=== PATIENT | male | born 1935 | race Caucasian/White ===

== ENCOUNTER 2016-08-25 06:00 | Day surgery (SDC) | payer OTHER, MEDICARE ==
[~2016-08-25] VITALS: Ht 177.8 cm; Wt 88.5 kg
[~2016-08-25 06:00] MED LIST: ASPIR 8181 MG PO; CARBIDOPA-LEVO1 EA10 PO; CITALOPRAM HBR20 MG PO; LEVOTHYROXINE25 MCG PO; LISINOPRIL2.5 MG PO; PREDNISONE20 MG PO; PRILOSEC20 MG PO
--- NOTE | 2016-08-25 08:22 | NUR ---
08/25/16 0822 Eran Enriquez PT SLEEPING AND PASSING AIR FROM HIS COLON.
--- NOTE | 2016-08-27 11:21 | OR ---
[facility] [address], [place] [address] Signed DATE OF SERVICE: 08/25/2016 UPPER AND LOWER ENDOSCOPY REPORT PREOPERATIVE DIAGNOSES: 1 .Advanced Parkinson disease. 2. Worsening esophageal dysphagia. 3. Gastroesophageal reflux disease. 4. Decreased cervical range of motion. 5. Personal history of colonic polyps. 6. Diverticulosis. 7. Internal anal skin tags. POSTOPERATIVE DIAGNOSES: 1. Diffuse gastritis. 2. 3 and 5 mm cecal polyps. 3. 3 x 7 mm proximal right colon polyp. 4. A 5-mm polyp proximal transverse colon (110 cm). 5. A 5-mm polyp distal transverse colon. 6. A 5-mm polyp distal splenic flexure. 7. Pandiverticulosis. 8. Internal anal skin tag. PROCEDURES: 1. Esophagogastroduodenoscopy with CLOtest and biopsies of the antrum. 2. Colonoscopy with hot biopsy. ESTIMATED BLOOD LOSS: None. INDICATIONS: Jsohua is a 80-year-old gentleman, who has been coming every 5 years for his followup colonoscopy. He has had adenomatous colonic polyps removed as far back as 2004. He said more recently, his bowel movements are fine. There is no family history of colon cancer or polyps. He is known to have pandiverticulosis as well as internal anal skin tags. In addition, he has advancing Parkinson disease. His esophageal dysphasia is becoming worse and his cervical range of motion is becoming less. He also suffers with some acid reflux. Because of his worsening esophageal dysphagia, particularly in the posterior oropharynx versus the proximal esophagus, he wanted to undergo an upper endoscopy as well. In the office, I gave him pamphlets on both subjects and we reviewed those together in detail. We also reviewed the risk including, but not limited to, gas bloating, crampy abdominal pain, bleeding, perforation requiring surgery, and missed diagnosis. We also discussed the Electronically Signed By: VINH OLIVAS MD 08/27/16 1121 PATIENT NAME: JOSHUA BARRETT OPERATIVE REPORT DATE OF : 39 PHYSICIAN: VINH OLIVAS MD REPORT #: [id number] REPORT IS CONFIDENTIAL AND NOT TO BE RELEASED WITHOUT AUTHORIZATION [facility] [address], [place] [address] Signed need for IV conscious sedation. Given his advanced Parkinson disease and hisdifficult airway and cervical range of motion, we asked that an anesthesia provider help us with increased monitoring of the airway as well as infusion of propofol. He had expressed understanding and wished to proceed. PROCEDURE NOTE: Joshua was taken into our endoscopy suite and placed in the supine semi-recumbent position. The posterior oropharynx was anesthetizedwith Hurricaine spray. He has a very limited extension of his neck. Consequently, the angle coming over his tongue and down in the esophagus is difficult, even with direct visualization with our gastroscope. He had been given IV sedation with the propofol. A bite block was utilized. It took vivian few minutes to get the scope past his tongue because of the Parkinson disease. Eventually, we passed the epiglottis and down into the esophagus and out into the duodenum itself. His duodenum and pyloric channel were unremarkable. The entire stomach showed some diffuse erythematous changes. We went ahead and took a biopsy of the antrum for CLOtest as well as pathologic review. Upon retroflexion of the scope, his flap valve mechanism is less than perfect, but it is not a true hiatal hernia. We saw no gastric or esophageal varices. The scope was then withdrawn up to the area ofthe GE junction which was compliant without stricture. He had minimal disruption to the Z-line. His distal, middle, and upper esophagus were completely unremarkable. After this, the gas was suctioned out and the gastroscope removed. Joshua tolerated his upperendoscopy quite well. Joshua was rotated into theleft lateral decubitus position. He was maintained on IV sedation with propofol per nurse sheriff sergeant. A digital rectal exam was performed and he does have a mildly enlarged prostate gland, but it is also indurated. It is a little more prominent on the left than on the right. After this, the adult colonoscope was introduced and advanced all the way around into the cecum under direct visualization of the camera. The above-mentioned polyps were removed with the help of a hot biopsy forceps. Of course, the most concerning polyp was in the proximal right colon as it stretched along the fold. We felt we cauterized that entire lesion. Overall, the prep was good. He also has pandiverticulosis. They are moderate in size, moderate in number, and scattered throughout the colon. Once in the rectum, the scope was then retroflexed and I could see a single internal anal skin tag. After this, the gas was suctioned out, the colonoscope removed. Joshua tolerated his procedures quite well. RECOMMENDATIONS: We will have Joshua back in the office in 7-14 days to review his results. I suspect much of his swallowing difficulties coming from his decreased range of motion of his neck and the angle that he has to swallow in the posteriororopharynx. Electronically Signed By: VINH OLIVAS MD 08/27/16 1121 PATIENT NAME: JOSHUA BARRETT OPERATIVE REPORT DATE OF : 39 PHYSICIAN: VINH OLIVAS MD REPORT #: [id number] REPORT IS CONFIDENTIAL AND NOT TO BE RELEASED WITHOUT AUTHORIZATION [facility] [address] [place] [address] [place] [address] Signed MD MURALI Mccloud/Breanna /[id number] cc: Dr. Santos Olivas MD Electronically Signed By: VINH OLIVAS MD 08/27/16 1121 PATIENT NAME: NENAJOSHUA WINIFRED OPERATIVE REPORT DATE OF : 39 PHYSICIAN: VINH OLIVAS MD REPORT #: [id number] REPORT IS CONFIDENTIAL AND NOT TO BE RELEASED WITHOUT AUTHORIZATION
== END 2016-08-25 09:29 | disposition home or self-care (01) ==
LOC: DS 06:00 → OPS 06:00 → DS 06:45 → OPS 06:45
PROVIDERS: Colon & Rectal Surgery
PROC: 0DB68ZX Excision of Stomach, Via Natural or Artificial Opening Endoscopic, Diagnostic (ICD-10-PCS; 2016-08-25)
PROC: 0DBH8ZX Excision of Cecum, Via Natural or Artificial Opening Endoscopic, Diagnostic (ICD-10-PCS; 2016-08-25)
PROC: 0DBL8ZX Excision of Transverse Colon, Via Natural or Artificial Opening Endoscopic, Diagnostic (ICD-10-PCS; principal; 2016-08-25 06:45)
PROC: 0DBF8ZX Excision of Right Large Intestine, Via Natural or Artificial Opening Endoscopic, Diagnostic (ICD-10-PCS; 2016-08-25 06:45)
DX: D12.3 Benign neoplasm of transverse colon (principal); D12.0 Benign neoplasm of cecum; K63.5 Polyp of colon; K29.50 Unspecified chronic gastritis without bleeding; K64.4 Residual hemorrhoidal skin tags; K57.30 Diverticulosis of large intestine without perforation or abscess without bleeding; I10 Essential (primary) hypertension; K21.9 Gastro-esophageal reflux disease without esophagitis; Z86.010 Personal history of colon polyps; E78.5 Hyperlipidemia, unspecified; E03.9 Hypothyroidism, unspecified; F32.9 Major depressive disorder, single episode, unspecified; F41.9 Anxiety disorder, unspecified; I95.1 Orthostatic hypotension; D64.9 Anemia, unspecified; Z90.89 Acquired absence of other organs; Z98.890 Other specified postprocedural states; Z87.891 Personal history of nicotine dependence; Z88.2 Allergy status to sulfonamides; Z88.1 Allergy status to other antibiotic agents; Z79.899 Other long term (current) drug therapy
CPT/HCPCS: 00740; 86677; J2250; J2704; J3010; J7120